=== PATIENT | male | born 1950 | race African-American/Black ===

== ENCOUNTER 2019-08-01 10:31 | Inpatient (IN) | payer MEDICARE ==
[~2019-08-01] VITALS: Ht 170.2 cm; Wt 74.9 kg
[2019-08-01] VITALS: BP 161/68
[2019-08-01] MEDS ORDERED: ALBUTEROL (0.083%) 2.5MG/3ML NEB HHN STA (11:06)
[2019-08-01] MEDS ORDERED: IPRATROPIUM BROMIDE (0.02%) 0.5MG/2.5ML NEB HHN STA (11:06)
[2019-08-01] MEDS ORDERED: METHYLPREDNISOLONE SOD SUCC 125 MG/2 ML VIAL IV STA (11:06)
[2019-08-01] MEDS ORDERED: IPRATROPIUM BROMIDE (0.02%) 0.5MG/2.5ML NEB ONE (11:23)
[2019-08-01 12:08] LABS: BASOPHILS % 0.4 % (0.0-2.0); EOSINOPHILS % 5.7 % (0.0-5.0); HEMATOCRIT. 44.2 % (42.0-52.0); HEMOGLOBIN. 14.9 g/dL (14.0-18.0); LYMPHOCYTES % 8.6 % (20.0-50.0); MEAN CORPUSCULAR HEMOGLOBIN 30.4 pg (28.0-32.0); MEAN CORPUSCULAR VOLUME 90.1 fL (80.0-94.0); MEAN PLATELET VOLUME 8.8 fl (7.4-10.4); MONOCYTES % 5.2 % (2.0-8.0); NEUTROPHILS % 80.1 % (40.0-76.0); PLATELET 239 x1000/uL (130-400); RED BLOOD CELL COUNT 4.91 mill/uL (4.7-6.1); RED CELL DISTRIBUTION WIDTH 13.7 % (11.6-14.6)
[2019-08-01 12:14] LABS: CHLORIDE 107 mEq/L (98-107)
[2019-08-01] MEDS ORDERED: MAGNESIUM HYDROXIDE 400MG/5ML 30ML UDC PO PRN (17:30)
[2019-08-01] MEDS ORDERED: REGADENOSON 0.4 MG/5 ML IV SCH (19:15)
[2019-08-01] MEDS ORDERED: GUAIFENESIN-DM 200MG-20MG/10ML UDC PO PRN (21:00)
[2019-08-01] MEDS ORDERED: TEMAZEPAM 15MG CAPSULE PO PRN (21:30)
[2019-08-01 21:31] VITALS: BP 138/81
[2019-08-01] MEDS: IPRATROPIUM/ALBUTEROL 0.5-3(2.5)MG/3ML NEB HHN PRN (22:00)
[2019-08-01] MEDS: METOPROLOL TARTRATE 25MG TABLET PO SCH ×2 (22:00→23:48)
[2019-08-01] MEDS: ATORVASTATIN CALCIUM 10MG TABLET PO SCH (22:00)
[2019-08-01] MEDS: CLOPIDOGREL 75MG TABLET PO SCH (23:05)
[2019-08-01] MEDS ORDERED: PRAV40TA58 PO (23:13)
[2019-08-01] MEDS ORDERED: CLOP75TA33 PO (23:13)
[2019-08-01] MEDS ORDERED: AMLO10TA80 PO (23:13)
[2019-08-01] MEDS ORDERED: METO25TA6 PO (23:13)
[2019-08-01] MEDS ORDERED: FURO40TA5 PO (23:13)
[2019-08-01] MEDS ORDERED: BENA10TA74 PO (23:13)
[2019-08-02] VITALS: BP 161/68
[2019-08-02 04:00] VITALS: BP 144/78
[2019-08-02] MEDS: IPRATROPIUM/ALBUTEROL 0.5-3(2.5)MG/3ML NEB HHN PRN ×3 (04:24→21:11)
[2019-08-02 07:17] LABS: HEMATOCRIT. 39.9 % (42.0-52.0); HEMOGLOBIN. 13.4 g/dL (14.0-18.0); MEAN CORPUSCULAR HEMOGLOBIN 30.4 pg (28.0-32.0); MEAN CORPUSCULAR VOLUME 90.3 fL (80.0-94.0); MEAN PLATELET VOLUME 9.3 fl (7.4-10.4); PLATELET 230 x1000/uL (130-400); RED BLOOD CELL COUNT 4.42 mill/uL (4.7-6.1); RED CELL DISTRIBUTION WIDTH 13.4 % (11.6-14.6)
[2019-08-02 07:42] LABS: CHLORIDE 107 mEq/L (98-107)
[2019-08-02 08:00] VITALS: BP 141/75
[2019-08-02] MEDS: BUDESONIDE 0.5MG/2ML NEB HHN SCH ×2 (08:00→21:11)
[2019-08-02] MEDS ORDERED: ENOXAPARIN 40MG/0.4ML SYR SUBCUT SCH (09:00)
[2019-08-02] MEDS: CLOPIDOGREL 75MG TABLET PO SCH (09:32)
[2019-08-02] MEDS: BENAZEPRIL 10MG TABLET PO SCH (09:32)
[2019-08-02] MEDS: ASPIRIN 81MG EC TABLET PO SCH (09:32)
[2019-08-02] MEDS: AMLODIPINE 2.5MG TABLET PO SCH (09:32)
[2019-08-02] MEDS: METOPROLOL TARTRATE 25MG TABLET PO SCH ×2 (09:36→20:45)
[2019-08-02] MEDS ORDERED: REGADENOSON 0.4 MG/5 ML IV ONE (10:13)
[2019-08-02 13:01] VITALS: BP 138/79
[2019-08-02 13:44] LABS: PLATELET ESTIMATE NORMAL
[2019-08-02 16:00] VITALS: BP 131/80
[2019-08-02] MEDS: ATORVASTATIN CALCIUM 10MG TABLET PO SCH (20:45)
[2019-08-02] MEDS: TEMAZEPAM 15MG CAPSULE PO SCH (20:45)
[2019-08-03] VITALS (18 sets, daily range): BP systolic 107–179; BP diastolic 74–96
[2019-08-03 06:35] LABS: BASOPHILS % 0.3 % (0.0-2.0); EOSINOPHILS % 1.7 % (0.0-5.0); HEMATOCRIT. 39.8 % (42.0-52.0); HEMOGLOBIN. 13.4 g/dL (14.0-18.0); LYMPHOCYTES % 15.1 % (20.0-50.0); MEAN CORPUSCULAR HEMOGLOBIN 30.6 pg (28.0-32.0); MEAN CORPUSCULAR VOLUME 90.8 fL (80.0-94.0); MEAN PLATELET VOLUME 9.4 fl (7.4-10.4); NEUTROPHILS % 74.9 % (40.0-76.0); PLATELET 217 x1000/uL (130-400); RED BLOOD CELL COUNT 4.39 mill/uL (4.7-6.1); RED CELL DISTRIBUTION WIDTH 14.1 % (11.6-14.6)
[2019-08-03] MEDS: IPRATROPIUM/ALBUTEROL 0.5-3(2.5)MG/3ML NEB HHN PRN ×2 (08:15→21:00)
[2019-08-03] MEDS: BUDESONIDE 0.5MG/2ML NEB HHN SCH ×2 (08:15→20:59)
[2019-08-03] MEDS: AMLODIPINE 2.5MG TABLET PO SCH ×3 (09:00→18:39)
[2019-08-03] MEDS: METOPROLOL TARTRATE 25MG TABLET PO SCH ×3 (09:00→20:45)
[2019-08-03] MEDS: BENAZEPRIL 10MG TABLET PO SCH ×3 (09:00→18:39)
[2019-08-03] MEDS: CLOPIDOGREL 75MG TABLET PO SCH (09:33)
[2019-08-03] MEDS: ASPIRIN 81MG EC TABLET PO SCH (09:34)
[2019-08-03] MEDS: SODIUM CHLORIDE 0.45% 1,000 ML IV SCH (09:34)
[2019-08-03] MEDS ORDERED: KCL 20MEQ/100ML PREMIX 100 ML IV NR (10:30)
[2019-08-03] MEDS ORDERED: NICARDIPINE 100MCG/ML 10ML VIAL (CATH LAB) IV ONE (10:44)
[2019-08-03] MEDS ORDERED: NITROGLYCERIN 50MCG/ML 10ML VIAL (CATH LAB) IV ONE (10:44)
[2019-08-03] MEDS ORDERED: HEPARIN SODIUM 1,000 UNIT/1ML VIAL IV ONE ×2 (10:44→12:09)
[2019-08-03] MEDS ORDERED: IOHEXOL-300 100 ML BOTTLE ONE (11:14)
[2019-08-03] MEDS ORDERED: IODIXANOL 320MG/ML 100 ML BOTTLE IV ONE ×2 (11:14→12:12)
[2019-08-03] MEDS ORDERED: LIDOCAINE HCL 1% 20ML VIAL (Pyxis) INJ ONE (11:14)
[2019-08-03] MEDS ORDERED: MIDAZOLAM HCL 2 MG/2 ML VIAL ONE (11:40)
[2019-08-03] MEDS ORDERED: FENTANYL CITRATE/PF 50MCG/ML 2ML VIAL ONE (11:41)
[2019-08-03] MEDS ORDERED: CLOPIDOGREL 75MG TABLET ONE (12:25)
[2019-08-03] MEDS ORDERED: ASPIRIN 325MG EC TABLET PO ONE (12:25)
[2019-08-03] MEDS ORDERED: ONDANSETRON HCL 4MG/2ML INJ IV PRN (12:45)
[2019-08-03] MEDS ORDERED: ATROPINE SULFATE 1MG/10ML SYR IV PRN (12:45)
[2019-08-03] MEDS ORDERED: ACETAMINOPHEN 325MG TABLET PO PRN (12:45)
[2019-08-03] MEDS: ATORVASTATIN CALCIUM 10MG TABLET PO SCH (20:44)
[2019-08-03] MEDS: TEMAZEPAM 15MG CAPSULE PO SCH (22:08)
[2019-08-03] MEDS: CLONIDINE 0.1MG TABLET PO PRN (22:09)
[2019-08-04] VITALS (8 sets, daily range): BP systolic 138–171; BP diastolic 85–107
[2019-08-04] MEDS: SODIUM CHLORIDE 0.45% 1,000 ML IV SCH (00:04)
[2019-08-04 06:27] LABS: BASOPHILS % 0.4 % (0.0-2.0); EOSINOPHILS % 5.9 % (0.0-5.0); HEMATOCRIT. 37.9 % (42.0-52.0); HEMOGLOBIN. 12.8 g/dL (14.0-18.0); LYMPHOCYTES % 20.2 % (20.0-50.0); MEAN CORPUSCULAR HEMOGLOBIN 30.5 pg (28.0-32.0); MEAN CORPUSCULAR VOLUME 90.2 fL (80.0-94.0); MONOCYTES % 10.5 % (2.0-8.0); PLATELET 212 x1000/uL (130-400); RED CELL DISTRIBUTION WIDTH 13.6 % (11.6-14.6)
[2019-08-04] MEDS: BENAZEPRIL 10MG TABLET PO SCH (08:42)
[2019-08-04] MEDS: AMLODIPINE 2.5MG TABLET PO SCH (08:42)
[2019-08-04] MEDS: METOPROLOL TARTRATE 25MG TABLET PO SCH (08:43)
[2019-08-04] MEDS: BUDESONIDE 0.5MG/2ML NEB HHN SCH (08:55)
[2019-08-04] MEDS: IPRATROPIUM/ALBUTEROL 0.5-3(2.5)MG/3ML NEB HHN PRN (08:55)
[2019-08-04] MEDS ORDERED: ASPIRIN 325MG TABLET PO SCH (09:00)
[2019-08-04] MEDS ORDERED: CLOPIDOGREL 75MG TABLET PO SCH (09:00)
[2019-08-04] MEDS ORDERED: DIPHENHYDRAMINE 50MG/ML VIAL IV NR (09:15)
[2019-08-04] MEDS: CLONIDINE 0.1MG TABLET PO PRN (12:43)
== END 2019-08-04 13:37 | disposition home or self-care (01) | DRG 247 ==
LOC: ER 10:31 → ENRESERV 20:33 → 7WST 21:39 → 3WST 08-03 12:44
PROVIDERS: ADMIT Internal Medicine; ATTEND Internal Medicine
PROC: 4A023N7 Measurement of Cardiac Sampling and Pressure, Left Heart, Percutaneous Approach (ICD-10-PCS; principal; 2019-08-03)
PROC: 027034Z Dilation of Coronary Artery, One Artery with Drug-eluting Intraluminal Device, Percutaneous Approach (ICD-10-PCS; 2019-08-03)
PROC: B2111ZZ Fluoroscopy of Multiple Coronary Arteries using Low Osmolar Contrast (ICD-10-PCS; 2019-08-03)
DX: I21.9 Acute myocardial infarction, unspecified (principal); I25.110 Atherosclerotic heart disease of native coronary artery with unstable angina pectoris; I24.8 Other forms of acute ischemic heart disease; J44.9 Chronic obstructive pulmonary disease, unspecified; E78.5 Hyperlipidemia, unspecified; E87.6 Hypokalemia; I11.9 Hypertensive heart disease without heart failure; F17.210 Nicotine dependence, cigarettes, uncomplicated; I25.10 Atherosclerotic heart disease of native coronary artery without angina pectoris; R73.9 Hyperglycemia, unspecified; Z79.02 Long term (current) use of antithrombotics/antiplatelets; Z79.82 Long term (current) use of aspirin; I25.2 Old myocardial infarction; Z79.899 Other long term (current) drug therapy; Z82.3 Family history of stroke; Z80.1 Family history of malignant neoplasm of trachea, bronchus and lung; Z83.3 Family history of diabetes mellitus; N18.9 Chronic kidney disease, unspecified
CPT/HCPCS: 36415; 71045; 78452; 78582; 80048; 80053; 83880; 84484; 85025; 85347; 85379; 92928; 93005; 93017; 93306; 93458; 94640; 96374; 99285; A9500; A9558; C1769; C1874; C1887; C1893; J1644; J1650; J2250; J2785; J2930; J3010; J3480; J3490; J7626; Q9967